=== PATIENT | male | born 1960 | race Two or more races ===

== ENCOUNTER → 2017-10-14 | Outpatient (CLI) | payer OTHER ==
--- NOTE | 2017-10-14 09:08 | RADIOLOGY REPORT (SQ) ---
EXAM DESCRIPTION: CT LUNG CANCER SCREENING COMPLETED DATE/TIME: 10/14/2017 8:55 am REASON FOR STUDY: NICOTINE DEPENDENCE F17.200 NICOTINE DEPENDENCE, UNSPECIFIED, UNCOMPLICATED Has the patient had a Chest CT scan within the past year? Was the patient offered tobacco cessation counseling? Was the patient engaged in shared decision making for this test? Does the patient have signs or symptoms of Lung Cancer? Is the patient a smoker? How many packs per year? How many years since quitting smoking? Patients age: COMPARISON: None. TECHNIQUE: Low Dose CT scan performed of the chest without intravenous contrast for purposes of scre ening for lung cancer. Images reviewed with lung, soft tissue and bone windows. Reconstructed coron al and sagittal MPR images reviewed. All images stored on PACS. All CT scanners at this facility use dose modulation, iterative reconstruction, and/or weight based d osing when appropriate to reduce radiation dose to as low as reasonably achievable (ALARA). [facility]: Dose Right [facility]: CareDose [facility]: Dose Right [facility]: Teradose 4D [facility]: [employer] RADIATION DOSE: CT Rad equipment meets quality standard of care and radiation dose reduction techniq ues were employed. CTDIvol: 2.1 mGy. DLP: 90 mGy-cm. mGy. . LIMITATIONS: None FINDINGS: LUNGS AND PLEURA: No masses or nodules. No pleural effusions or calcifications. No pne umothorax. HILAR AND MEDIASTINAL STRUCTURES: No identified masses. No abnormal nodes. HEART AND VASCULAR STRUCTURES: No aortic aneurysm. No pericardial effusion. No cardiac devices. CORONARY ARTERY CALCIFICATIONS: Mild to moderate calcifications. UPPER ABDOMEN, THYROID, BONES, OTHER SOFT TISSUES: No significant findings. IMPRESSION: NO SIGNIFICANT FINDING IN THE LUNGS ON NON-CONTRASTED CHEST CT. NO OTHER CLINICALLY SIGNIFICANT/POTENTIALLY CLINICALLY SIGNIFICANT FINDINGS LUNGRADS: LUNGRADS: 1 NEGATIVE. NO NODULES, OR DEFINITELY BENIGN NODULES MODIFIER: NONE RECOMMENDATION: Continue annual screening with LDCT in 12 months. COMMENT: CRITERIA: No lung nodules. Nodules with specific calcifications: Complete, central, popcorn, concentric rings and fat containin g nodules. TECHNICAL DOCUMENTATION: JOB ID: [id number] Quality ID # [id number]: Final reports with documentation of one or more dose reduction techniques (e.g., Au tomated exposure control, adjustment of the mA and/or kV according to patient size, use of iterative reconstruction technique) 2010 [facility] Reading location - IP/workstation name: [email or web address]
== END ==
LOC: RAD 08:04
PROVIDERS: ATTEND Family Medicine
DX: Z12.2 Encounter for screening for malignant neoplasm of respiratory organs (principal); F17.200 Nicotine dependence, unspecified, uncomplicated
CPT/HCPCS: G0297

== ENCOUNTER → 2018-07-16 | Outpatient (CLI) | payer OTHER ==
--- NOTE | 2018-07-16 15:10 | RADIOLOGY REPORT (SQ) ---
EXAM DESCRIPTION: U/S NON OB PEL W/DOPPLER COMPLETED DATE/TIME: 07/16/2018 2:00 pm REASON FOR STUDY: PERIUMBILICAL PAIN COMPARISON: CT abdomen pelvis 11/14/2013 TECHNIQUE: Ultrasound of the left inguinal region was performed to evaluate for mass or inguinal her juan daniel. Grayscale, color flow, and cine images are saved to pac's. LIMITATIONS: None. FINDINGS: Small fat containing left inguinal hernia is present, protruding further into the inguinal canal on Valsalva. IMPRESSION: Small fat containing left inguinal hernia TECHNICAL DOCUMENTATION: JOB ID: [id number] 1930 [employer]- All Rights Reserved Reading location - IP/workstation name: [email or web address]
== END ==
LOC: RAD 12:02
PROVIDERS: ATTEND Nurse Practitioner Family
DX: R10.33 Periumbilical pain (principal)
CPT/HCPCS: 76856; 93976

== ENCOUNTER 2018-08-04 10:48 | Day surgery (SDC) | payer OTHER ==
[2018-08-02 12:22] LABS: HEMATOCRIT 45.7 % (37.9-51.0); MEAN CORPUSCULAR HEMOGLOBIN 31.7 pg (27.0-33.4); MEAN CORPUSCULAR VOLUME 91 fl (80-97); PLATELET COUNT 255 10^3/uL (150-450); RED BLOOD COUNT 5.05 10^6/uL (4.35-5.55); RED CELL DISTRIBUTION WIDTH 13.3 % (11.5-14.0); WHITE BLOOD COUNT 6.5 10^3/uL (4.0-10.5)
[2018-08-02 12:44] LABS: ALANINE AMINOTRANSFERASE 28 U/L (21-72); ALBUMIN 4.9 g/dL (3.5-5.0); ALKALINE PHOSPHATASE 83 U/L (38-126); ANION GAP 11 (5-19); ASPARTATE AMINO TRANSFERASE 24 U/L (17-59); BILIRUBIN,DIRECT 0.2 mg/dL (0.0-0.4); BILIRUBIN,TOTAL 0.5 mg/dL (0.2-1.3); BLOOD UREA NITROGEN 20 mg/dL (7-20); CALCIUM 9.9 mg/dL (8.4-10.2); CARBON DIOXIDE 29 mmol/L (22-30); CHLORIDE 100 mmol/L (98-107); GLUCOSE 101 mg/dL (75-110); POTASSIUM 4.6 mmol/L (3.6-5.0); SODIUM 139.7 mmol/L (137-145); TOTAL PROTEIN 7.3 g/dL (6.3-8.2)
--- NOTE | 2018-08-03 01:31 | EKG REPORT ---
SEVERITY:- NORMAL ECG - SINUS RHYTHM : Confirmed by: Belkys Minor MD 03-Aug-2018 01:31:02
[~2018-08-04 10:48] MED LIST: ACETAMINOPHEN 325 MG TABLET PO PRN; CEFAZOLIN 1 GM/D5W RTU 1 GM/50 ML RTUPB IV PRN; LACTATED RINGERS 1000 ML IV PRN; LIDOCAINE 0.5% INJ-PF (5 MG/ML) 50 ML SDV SUBCUT PRN
[2018-08-04] MEDS ORDERED: HYDROMORPHONE HCL INJ/PF 2 MG/ML AMPULE ONE (12:03)
[2018-08-04] MEDS ORDERED: FENTANYL CITRATE INJ/PF 100 MCG/2 ML AMPUL ONE (12:03)
[2018-08-04] MEDS ORDERED: PROMETHAZINE HCL INJ 25 MG/1 ML VIAL ONE (12:03)
[2018-08-04] MEDS ORDERED: DEXAMETHASONE SOD PHOSPHATE INJ 4 MG/1 ML VIAL ONE (12:04)
[2018-08-04] MEDS ORDERED: ACETAMINOPHEN 1,000 MG/100 ML RTUPB IV ONE (12:04)
[2018-08-04] MEDS ORDERED: PROPOFOL INJ 200 MG/20 ML VIAL IV ONE (12:04)
[2018-08-04] MEDS ORDERED: ONDANSETRON HCL INJ/PF 4 MG/2 ML SDV ONE (12:04)
[2018-08-04] MEDS ORDERED: EPHEDRINE SULFATE INJ 50 MG/1 ML AMPULE ONE (12:04)
[2018-08-04] MEDS ORDERED: MIDAZOLAM 2 MG/2 ML INJ ONE (12:04)
[2018-08-04] MEDS ORDERED: BUPIVACAINE HCL 0.5%-EPI 1:200000 INJ/PF 30 ML VIAL ONE (12:08)
[2018-08-04] MEDS ORDERED: CEFAZOLIN 1 GM/D5W RTU 1 GM/50 ML RTUPB IV ONE (12:18)
[2018-08-04] MEDS ORDERED: ROCURONIUM BROMIDE INJ 50 MG/5 ML VIAL IV ONE (12:42)
[2018-08-04] MEDS ORDERED: KETOROLAC TROMETHAMINE 60 MG/2 ML SDV ONE (12:42)
[2018-08-04] MEDS ORDERED: NEOSTIGMINE METHYLSULFATE 10 MG/10 ML VIAL ONE (12:42)
[2018-08-04] MEDS ORDERED: GLYCOPYRROLATE 1 MG/5 ML SYRINGE ONE (12:42)
[2018-08-04] MEDS ORDERED: SUCCINYLCHOLINE CHLORIDE INJ 200 MG/10 ML VIAL ONE (12:42)
[2018-08-04] MEDS ORDERED: PROMETHAZINE HCL INJ 25 MG/1 ML VIAL IV PRN ×2 (13:22)
[2018-08-04] MEDS ORDERED: DIPHENHYDRAMINE HCL 50 MG/ML VIAL IV PRN (13:22)
[2018-08-04] MEDS ORDERED: MORPHINE SULFATE 10 MG/ML INJ IV PRN (13:22)
[2018-08-04] MEDS ORDERED: MEPERIDINE HCL/PF INJ 25 MG/1 ML DISP.SYRIN IV PRN (13:22)
[2018-08-04] MEDS ORDERED: FENTANYL CITRATE INJ/PF 100 MCG/2 ML AMPUL IV PRN ×3 (13:22)
[2018-08-04] MEDS ORDERED: CEFAZOLIN INJ 1 GM VIAL ONE (13:42)
--- NOTE | 2018-08-04 13:54 | Operative Report ---
Nonrecallable Operative Report DATE OF SURGERY: 08/04/18 Operative Report: see dictation PREOPERATIVE DIAGNOSIS: left inguinal hernia POSTOPERATIVE DIAGNOSIS: left inguuinal hernia OPERATION: reparir left inguinal hernia SURGEON: GAEL BASILIO 1[employer] MILL TURNER: [employer] ANESTHESIA: GA TISSUE REMOVED OR ALTERED: none COMPLICATIONS: none ESTIMATED BLOOD LOSS: 5cc INTRAOPERATIVE FINDINGS: left inguinal hernia PROCEDURE: see dictation
--- NOTE | 2018-08-04 13:58 | Discharge Summary ---
Discharge Summary (SDC) - Discharge Final Diagnosis: left inguinal hernia Date of Surgery: 08/04/18 Discharge Date: 08/04/18 Condition: Good Referrals: JLUIS RILEY MD [Primary Care Provider] - Discharge Diet: As Tolerated Discharge Activity: Activity As Tolerated, No Lifting Over 10 Pounds, No Lifting/Push/Pulling, Walk Frequently Report the Following to Your Physician Immediately: Shortness of Breath, Nausea, Vomiting, Increase in Pain, Fever over 101 Degrees - needs f/u with me in 10-14 days, Unusual Bleeding, Redness
[2018-08-04] MEDS ORDERED: OXYCODONE-ACETAMINOPHEN 5-325 MG TABLET PO PRN (15:02)
--- NOTE | 2018-08-04 15:03 | OPERATIVE REPORT E ---
Operative Report NAME: LAVON ESPARZA : 1960 AGE: 57Y DATE OF SURGERY: 08/04/2018 ROOM: PREOPERATIVE DIAGNOSIS: LEFT INGUINAL HERNIA. POSTOPERATIVE DIAGNOSIS: LEFT INGUINAL HERNIA. OPERATION: LEFT INGUINAL HERNIORRHAPHY. SURGEON: GAEL BASILIO M.D. HOSPITALITY INTERNSHIP: Alejandra Lopez PA-C, who was present for the entire duration of the procedure for wound retraction and wound closure. PROCEDURE: The patient was brought to the operating room awake, alert, and in stable condition. Placed on the operating table in supine position and induced under general anesthesia, intubated. The abdomen and left groin were prepped and draped in the usual sterile manner for the procedure. A curvilinear incision was made in the left groin crease, dissecting down through the subcutaneous tissue and William's fascia with Bovie cautery. The external oblique fascia was opened along with its fibers, protecting the ilioinguinal nerve behind the lateral leaflet of the external oblique. We then identified the fact that he had an indirect inguinal hernia. We mobilized the cord structures and slung them with a Nathan drain. We then dissected the hernia sac away from the anterior medial side of the cord structures and dissected up to the internal ring, twisted upon itself and ligated with 0 Ethibond suture. We then used a piece of polypropylene mesh in a Brian type repair, fixed the medial side of the mesh to the Poupart's fascia, created a keyhole for the cord structures and fixed the medial part of the mesh to conjoint tendon. This was all done with 0 Ethibond sutures. Once this was done, we returned the cord structures to the top of the mesh, tucked the tails of the mesh underneath the external oblique, dusted it with Ancef powder and closed the external oblique with a running 0 Vicryl suture, being careful not to injure the ilioinguinal nerve. We then closed the William's fascia with interrupted 2-0 Vicryl suture, and skin was closed with 4-0 Monocryl. Steri-Strips completed the procedure. Estimated blood loss was less than 10 mL. Sponge and needle counts were correct x2. The patient was awakened in the operating room, extubated, and transferred to recovery in stable condition. No complications. DICTATING PHYSICIAN: GAEL BASILIO M.D. [id number] PHY#: [id number] ID: [id number] JOB#: [id number] ACCT: [id number] cc:GAEL BASILIO M.D. >
[2018-08-04 16:23] VITALS: BP 138/77
== END 2018-08-04 16:05 | disposition home or self-care (01) ==
LOC: OROUT 10:48
PROVIDERS: ATTEND Surgery
DX: K40.90 Unilateral inguinal hernia, without obstruction or gangrene, not specified as recurrent (principal); E11.9 Type 2 diabetes mellitus without complications; E78.5 Hyperlipidemia, unspecified; F17.210 Nicotine dependence, cigarettes, uncomplicated; R03.0 Elevated blood-pressure reading, without diagnosis of hypertension; Z85.46 Personal history of malignant neoplasm of prostate; Z79.84 Long term (current) use of oral hypoglycemic drugs
CPT/HCPCS: 93010; 93005; 36415; 82962; 85027; 80053; 49505; C1781; J2250; J3490 ×3; J0690 ×2; J1100; J1885; J3010; J1170; J2550; J0330; J2405; J2704; J0131; 830